=== PATIENT | male | born 1980 | race African-American/Black ===

== ENCOUNTER 2017-02-24 16:26 | Emergency (ER) | payer SELFPAY ==
--- NOTE | 2017-02-24 17:06 | ED.ADGEN ---
Adult General Chief Complaint Chief Complaint Low back pain HPI HPI Patient is a 36-year-old Afro[place] male presents with nontraumatic low back pain is 1 week. Patient states he was bending over cleaning when he left lower back began to hurt. Pain is persistent for 1 week and is pearly controlled with Tylenol. Pain is currently rated as [id number] is worse with palpation and movement. Patient denies motor weakness or loss of sensation. Pain is nonradiating. No other acute symptoms or complaints. Patient does not currently have a PCP. Review of Systems Review of Systems ROS as per HPI. Physical Exam Physical Exam Constitutional: Well developed, well nourished, no acute distress, non-toxic appearance. HENT: Normocephalic, atraumatic, bilateral external ears normal, oropharynx moist, no oral exudates, nose normal. Eyes: PERRLA, EOMI, conjunctiva normal. Neck: Normal range of motion, no tenderness, supple. Cardiovascular:Heart rate regular rhythm. Lungs & Thorax: Bilateral breath sounds clear to auscultation. Abdomen: Bowel sounds normal, soft, no tenderness. Skin: Warm, dry. Back: No CVA tenderness. Left lower lumbar paravertebral pain, tenderness reproducing complaint with palpation and movement. Extremities: No tenderness, no cyanosis, no clubbing, ROM intact, no edema. Neurologic: Alert and oriented X 3, 70 weakness or loss of sensation. EKG EKG [] Radiology/Procedures Radiology/Procedures [] Impressions: Mechanical back pain without neurologic deficits Course & Med Decision Making Course & Med Decision Making Pertinent Labs and Imaging studies reviewed. (See chart for details) [Recommend her care with PCP follow-up.] Final Impression Final Impression [1. Low back pain] Problems: Dragon Disclaimer Dragon Disclaimer This electronic medical record was generated, in whole or in part, using a voice recognition dictation system. KARLA CANDELARIA DO Feb 24, 2017 17:06
[2017-02-24 17:15] VITALS: BP 128/86
== END 2017-02-24 17:15 | disposition home or self-care (01) ==
LOC: ER 16:26
DX: M54.5 Low back pain (principal)
CPT/HCPCS: 99283